=== PATIENT | male | born 1975 | race Hispanic/Latino ===

== ENCOUNTER 2023-12-02 23:58 | Emergency (ER) | payer SELFPAY ==
[~2023-12-02] VITALS: Ht 167.6 cm; Wt 79.5 kg
[~2023-12-02 23:58] MED LIST: CIPROFLOXACN500 MG PO; PERCOCET 5/321 COMBO PO
[2023-12-03] VITALS (10 sets, daily range): BP systolic 102–110; BP diastolic 66–73
[2023-12-03] MEDS ORDERED: ASPIRIN 81 MG/TAB PO ONE (00:10)
[2023-12-03] MEDS ORDERED: KETOROLAC TROMETHAMINE 30 MG/ML SDV IV ONE (00:10)
[2023-12-03] MEDS ORDERED: traMADol HCL 50 MG/TAB PO ONE (00:10)
[2023-12-03 00:29] LABS: BASO% 0.7 % (0-3); EOS% 7.9 % (0-8); HEMATOCRIT 43.1 % (39.0-50.0); IMMATURE GRANULOCYTES 1.1 % (0.0-5.0); MEAN CELL VOLUME 92.5 fL CALC (80.0-100.0); MEAN CORPUSCULAR HGB 32.2 pG CALC (26.0-32.0); MEAN CORPUSCULAR HGB CONC 34.8 g/dL CAL (32.0-36.0); MONO% 7.2 % (2-13); NEUT# 2.61 thou/uL (1.82-7.42); NEUT% 46.1 % (42-76); RED BLOOD COUNT 4.66 mill/uL (4.70-6.10); RED CELL DISTRI WIDTH 12.2 % (11.5-15.5)
[2023-12-03 00:36] LABS: ALBUMIN 4.6 g/dL (3.2-5.0); ALKALINE PHOSPHATASE 87 u/l (38-126); ANION GAP 10 (6-22 (CALC)); BILIRUBIN, TOTAL 0.8 mg/dL (0.2-1.3); BUN 16 mg/dL (9-20); BUN/CREATININE RATIO 18 (12-20 (CALC)); CARBON DIOXIDE 25 mmol/l (22-30); CHLORIDE 107 mmol/l (95-108); CREATININE 0.9 mg/dL (0.7-1.3); ESTIMATED GFR 104 ML/MIN (>=90 (CALC)); LIPASE 95 u/l (23-300); POTASSIUM 3.5 mmol/l (3.5-5.1); SGOT/AST 45 u/l (17-59); SODIUM 139 mmol/l (137-146); TOTAL PROTEIN 7.8 g/dL (6.3-8.2)
[2023-12-03 00:44] LABS: ACT PARTIAL THROMBO TIME 27.1 SECONDS (20.0-32.5)
[2023-12-03 01:03] LABS: D-DIMER 0.31 mg/L (0.19-0.60)
[2023-12-03 01:11] LABS: PROTHROMBIN TIME 9.8 SECONDS (9.0-12.5)
[2023-12-03] MEDS ORDERED: VOLTAREN - GENE75 MG PO (02:23)
== END 2023-12-03 02:32 | disposition home or self-care (01) | DRG 313 ==
LOC: ED 23:58
PROVIDERS: Family Medicine
DX: R07.89 Other chest pain (principal)